=== PATIENT | female | born 1930 | race Caucasian/White ===

== ENCOUNTER 2016-11-16 14:12 | Emergency (ER) | payer MEDICARE, BC ==
[2016-11-16 14:25] VITALS: BP 129/67
[2016-11-16] MEDS ORDERED: Sodium Chloride 0.9% 1,000 ML IV ONE (14:38)
--- NOTE | 2016-11-16 14:38 | EDM.PDOC ---
[id number] 4d HEAD/NECK PAIN, BLURRY VISION Time Seen by Provider: 11/16/16 14:30 Source of Information: Reports: Patient, Family (spouse) - History of Present Illness INITIAL COMMENTS - FREE TEXT/NARRATIVE: 86-year-old female presents the ED with worsening of ataxia and balance and she awoke from sleep this morning. She states she did know she was able to make it to the kitchen after getting up from bed. Strong component of vertigo and nurses appreciate marked ataxia on walking into the room. Seems to be listing a bit to the left side. She required assistance to walk. She denies any vomiting and her stomach is a bit queasy. No recent falls or closed head injuries. Does have pain at the base of her neck and skull appear known to have her start 3 changes throughout her cervical spine. History of vertigo. Her other complaint is that of increased blurred vision. This is likely secondary to nystagmus. She is on multiple eye drops for her glaucoma and vision is impaired at the best of times. Onset: Today (Marked worsening of her balance with ataxia today since waking up from sleep. Pressure at the base of her skull.) Onset Date: 11/16/16 Onset Time: 08:00 Duration: Hour(s):, Constant Location: Reports: Head, Neck, Other (Vertigo symptoms with ataxia.) Quality: Reports: Ache, Pressure Severity: Moderate (At the base of her neck.) Improves with: Reports: Rest (Not moving) Worsens with: Reports: Movement Context: Denies: Activity, Exercise, Lifting, Sick Contact, Trauma, Other Associated Symptoms: Reports: Headaches (Pressure more than headache.), Malaise , Nausea/Vomiting, Weakness (Mild nausea but no vomiting generalized weakness). 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 Right Neck Pain Score (Numeric/FACES): 9 - Related Data Allergies Allergy/AdvReac Type Severity Reaction Status Date / Time amitriptyline Allergy Cannot Verified 11/16/16 14:25 Remember barium sulfate Allergy Cannot Verified 11/16/16 14:25 Remember hydromorphone HCl Allergy Nausea Verified 11/16/16 14:25 [From Dilaudid] Iodinated Contrast Media - Allergy Facial Verified 11/16/16 16:07 Oral and Swelling levothyroxine sodium Allergy Cannot Verified 11/16/16 14:25 Remember lisinopril Allergy Cannot Verified 11/16/16 14:25 Remember morphine Allergy Headache Verified 11/16/16 14:25 moxifloxacin HCl Allergy Cannot Verified 11/16/16 14:25 [From Vigamox] Remember nitrofurantoin Allergy Headache Verified 11/16/16 14:25 olmesartan Allergy Cannot Verified 11/16/16 14:25 Remember olmesartan medoxomil Allergy Cannot Verified 11/16/16 14:25 [From Benicar] Remember promethazine Allergy Cannot Verified 11/16/16 14:25 Remember red dye Allergy Cannot Verified 11/16/16 14:25 Remember thyroid,pork Allergy Cannot Verified 11/16/16 14:25 [From [place] Thyroid] Remember tramadol Allergy Facial Verified 11/16/16 14:25 Swelling valacyclovir Allergy Headache Verified 11/16/16 14:25 mitrocell Allergy Cannot Uncoded 08/17/15 12:29 Remember MSG Allergy Swelling Uncoded 08/17/15 12:29 Home Meds: Home Meds Atropine 1% [Isopto Atropine 1% Ophth Soln] 15 ml EYELF BID 05/13/14 [History] Brinzolamide [Azopt 1% Ophth Susp] 1 drop EYERT TID 05/13/14 [History] Fish Oil/[place]-3 Fatty Acids [Fish Oil] 2 each PO DAILY 05/13/14 [History] Loratadine 10 mg PO DAILY PRN 05/13/14 [History] Travoprost [Travatan Z 0.004% Ophth Soln] 1 drop EYERT BEDTIME 05/13/14 [History ] Levothyroxine [Synthroid] 50 mcg PO DAILY 08/17/15 [History] Acetaminophen [Acetaminophen ER] 650 mg PO Q12H PRN 11/16/16 [History] Ascorbate Calcium [Vitamin C] 1 tab PO DAILY 11/16/16 [History] Calcium Carbonate [Calcium] 600 mg PO DAILY 11/16/16 [History] Chlorthalidone 25 mg PO DAILY 11/16/16 [History] Cholecalciferol (Vitamin D3) [Vitamin D3] 1 tab PO DAILY 11/16/16 [History] Lutein/Minerals/Vit A,C & E [Ocuvite] 1 tab PO DAILY 11/16/16 [History] Lutein/Zeaxanthin [Lutein-Zeaxanthin 25-5 mg Sfgl] 1 tab PO DAILY 11/16/16 [ History] Meloxicam 7.5 mg PO DAILY #14 tablet 11/16/16 [Rx] Metoclopramide HCl [Reglan] 5 mg PO Q8H PRN #10 tablet 11/16/16 [Rx] Ubidecarenone [Co Q-10] 1 tab PO DAILY 11/16/16 [History] Vitamin B Complex 1 tab PO DAILY 11/16/16 [History] Past Medical History HEENT History: Reports: Cataract, Glaucoma, Hard of Hearing, Impaired Vision, Other (See Below) (Hard of hearing and wears hearing is in both ears.) Other HEENT History: Wears glasses, wears dentures. 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: Musculoskeletal History: Reports: Fracture, Other (See Below) Other Musculoskeletal History: Broken vertebrae Neurological History: Reports: TIA Endocrine/Metabolic History: Reports: Hypothyroidism - Infectious Disease History Infectious Disease History: Reports: Shingles - Past Surgical History HEENT Surgical History: Reports: Cataract Surgery, Tonsillectomy GI Surgical History: Reports: Appendectomy, Cholecystectomy, Lysis of Adhesions Female Surgical History: Reports: Hysterectomy, Salpingo-Oophorectomy Social & Family History - Tobacco Use Smoking Status *Q: Never Smoker Second Hand Smoke Exposure: No - Caffeine Use Caffeine Use: Reports: None - Alcohol Use Days Per Week of Alcohol Use: 0 - Recreational Drug Use Recreational Drug Use: No - Living Situation & Occupation Living situation: Reports: with Spouse ED ROS GENERAL - Review of Systems Review Of Systems: See Below Constitutional: Reports: Malaise, Weakness, Decreased Appetite. Denies: Fever, Chills, Fatigue, Weight Loss HEENT: Reports: Glasses, Vision Change (She states her vision seems to be more blurred and difficulty focusing today.) Respiratory: Reports: No Symptoms Cardiovascular: Reports: Blood Pressure Problem, Dyspnea on Exertion, Lightheadedness. Denies: Chest Pain, Claudication, Orthopnea (Chronic hypertension well controlled with current medications), Palpitations Endocrine: Reports: Fatigue GI/Abdominal: Reports: Decreased Appetite. Denies: Abdominal Pain, Anorexia, Black Stool, Bloody Stool, Diarrhea, Difficulty Swallowing : Reports: Frequency, Incontinence (Urge and stress component) Musculoskeletal: Reports: Neck Pain, Back Pain, Joint Pain (Knees and hips.) Skin: Reports: No Symptoms Neurological: Reports: Dizziness, Difficulty Walking, Gait Disturbance (Off balance and ataxic). Denies: Numbness, Seizure, Syncope, Tingling, Weakness Psychiatric: Reports: Anxiety ED EXAM, GENERAL - Physical Exam Exam: See Below Exam Limited By: No Limitations General Appearance: Alert, WD/WN, No Apparent Distress Eye Exam: Bilateral Eye: Normal Inspection, Nystagmus (Mild on right lateral upward gaze) Ears: Normal External Exam, Normal Canal, Other (Her major removed from both ears. She has minimal ear wax or cerumen in nothing impacted against the tympanic membrane bilaterally.) Throat/Mouth: Normal Inspection, Normal Lips, Normal Oropharynx Head: Atraumatic, Normocephalic Neck: Normal Inspection, Supple, Non-Tender, Full Range of Motion. No: Carotid Bruit, Lymphadenopathy (L), Lymphadenopathy (R) Respiratory/Chest: No Respiratory Distress, Lungs Clear, Normal Breath Sounds, No Accessory Muscle Use Cardiovascular: Normal Peripheral Pulses, Regular Rate, Rhythm, No Edema, No Gallop, No Murmur, No Rub Peripheral Pulses: 1+: Posterior Tibial (L), Posterior Tibial (R), Dorsalis Pedis (L), Dorsalis Pedis (R) GI/Abdominal: Normal Bowel Sounds, Soft, Non-Tender, No Organomegaly Back Exam: Decreased Range of Motion. No: CVA Tenderness (L), CVA Tenderness (R ) Extremities: Normal Inspection, Limited Range of Motion (Knees and hips lumbar spine and neck.) Neurological: Alert, Oriented, CN II-XII Intact, Normal Cognition, Normal Reflexes, Abnormal Gait (Ataxic gait.). No: Normal Gait, No Motor/Sensory Deficits, Inattentive, Confused, Disoriented, Slow to Respond, Unresponsive, Memory Loss Remote Events Psychiatric: Normal Affect, Normal Mood Skin Exam: Warm, Dry, Intact, Normal Color, No Rash Course - Vital Signs Last Recorded V/S: Last Vital Signs Temp 35.9 C 11/16/16 14:19 Pulse 59 L 11/16/16 14:19 Resp 18 11/16/16 14:19 BP 129/67 11/16/16 14:19 Pulse Ox 99 11/16/16 14:19 Orthostatic Blood Pressure [ 156/79 Standing] Orthostatic Blood Pressure [ 173/73 Sitting] Orthostatic Blood Pressure [ 171/70 Supine] - Orders/Labs/Meds Labs: Laboratory Tests 11/16/16 11/16/16 11/16/16 Range/Units 14:45 14:45 14:45 WBC 7.40 (3.98-10.04) K/mm3 RBC 3.86 L (3.98-5.22) M/mm3 Hgb 12.2 (11.2-15.7) gm/L Hct 36.2 (34.1-44.9) % MCV 93.8 (79.4-94.8) fl MCH 31.6 (25.6-32.2) pg MCHC 33.7 (32.2-35.5) g/dl RDW Std Deviation 42.0 (36.4-46.3) fL Plt Count 234 (182-369) K/mm3 MPV 9.2 L (9.4-12.3) fl Neutrophils % (Manual) 60 (40-60) % Band Neutrophils % 1 (0-10) % Lymphocytes % (Manual) 34 (20-40) % Atypical Lymphs % 0 % Monocytes % (Manual) 3 (2-10) % Eosinophils % (Manual) 1 (0.7-5.8) % Basophils % (Manual) 1 (0.1-1.2) Platelet Estimate Adequate Plt Morphology Comment Normal Anisocytosis 1+ slight Stomatocytes 1+ slight RBC Morph Comment Not Reportable ESR 31 H (0-20) mm/hr Sodium 134 L (136-145) mEq/L Potassium 3.5 (3.5-5.1) mEq/L Chloride 98 (98-107) mEq/L Carbon Dioxide 27 (21-32) mEq/L Anion Gap 12.5 (5-15) BUN 21 H (7-18) mg/dL Creatinine 1.1 H (0.55-1.02) mg/dL Est Cr Clr Drug Dosing 29.32 mL/min Estimated GFR (MDRD) 47 (>60) mL/min BUN/Creatinine Ratio 19.1 H (14-18) Glucose 99 (83-115) mg/dL Calcium 9.9 (8.5-10.1) mg/dL Magnesium (1.8-2.4) mg/dl Total Bilirubin 0.5 (0.2-1.0) mg/dL AST 23 (15-37) U/L ALT 23 (14-59) U/L Alkaline Phosphatase 67 (46-116) U/L C-Reactive Protein < 0.2 (<1.0) mg/dL Total Protein 7.2 (6.4-8.2) g/dl Albumin 3.6 (3.4-5.0) g/dl Globulin 3.6 gm/dL Albumin/Globulin Ratio 1.0 (1-2) 11/16/16 Range/Units 14:45 WBC (3.98-10.04) K/mm3 RBC (3.98-5.22) M/mm3 Hgb (11.2-15.7) gm/L Hct (34.1-44.9) % MCV (79.4-94.8) fl MCH (25.6-32.2) pg MCHC (32.2-35.5) g/dl RDW Std Deviation (36.4-46.3) fL Plt Count (182-369) K/mm3 MPV (9.4-12.3) fl Neutrophils % (Manual) (40-60) % Band Neutrophils % (0-10) % Lymphocytes % (Manual) (20-40) % Atypical Lymphs % % Monocytes % (Manual) (2-10) % Eosinophils % (Manual) (0.7-5.8) % Basophils % (Manual) (0.1-1.2) Platelet Estimate Plt Morphology Comment Anisocytosis Stomatocytes RBC Morph Comment ESR (0-20) mm/hr Sodium (136-145) mEq/L Potassium (3.5-5.1) mEq/L Chloride (98-107) mEq/L Carbon Dioxide (21-32) mEq/L Anion Gap (5-15) BUN (7-18) mg/dL Creatinine (0.55-1.02) mg/dL Est Cr Clr Drug Dosing mL/min Estimated GFR (MDRD) (>60) mL/min BUN/Creatinine Ratio (14-18) Glucose (83-115) mg/dL Calcium (8.5-10.1) mg/dL Magnesium 1.8 (1.8-2.4) mg/dl Total Bilirubin (0.2-1.0) mg/dL AST (15-37) U/L ALT (14-59) U/L Alkaline Phosphatase (46-116) U/L C-Reactive Protein (<1.0) mg/dL Total Protein (6.4-8.2) g/dl Albumin (3.4-5.0) g/dl Globulin gm/dL Albumin/Globulin Ratio (1-2) Meds: Medications Discontinued Medications Generic Name Dose Route Start Last Admin Trade Name Freq PRN Reason Stop Dose Admin Diphenhydramine HCl 25 mg 11/16/16 16:01 11/16/16 16:10 Benadryl IVPUSH 11/16/16 16:02 25 mg ONETIME ONE Administration Hydrocortisone Sodium Succinate 50 mg 11/16/16 16:01 11/16/16 16:08 Solu-Cortef IVPUSH 11/16/16 16:02 50 mg ONETIME ONE Administration Sodium Chloride 1,000 mls @ 250 mls/hr 11/16/16 14:38 11/16/16 14:49 Normal Saline IV 11/16/16 18:37 250 mls/hr ONETIME ONE Administration Sodium Chloride 100 mls @ 60 mls/hr 11/16/16 16:15 11/16/16 16:40 Normal Saline IV 60 mls/hr ASDIRECTED DANTE Administration Iopamidol 100 ml 11/16/16 16:04 11/16/16 16:39 Isovue-370 (76%) IVPUSH 11/16/16 16:05 100 ml ONETIME ONE Administration Metoclopramide HCl 7.5 mg 11/16/16 14:40 11/16/16 14:50 Reglan IVPUSH 11/16/16 14:41 7.5 mg ONETIME ONE Administration Sodium Chloride 10 ml 11/16/16 16:04 11/16/16 16:39 Saline Flush FLUSH 11/16/16 16:05 10 ml ONETIME ONE Administration - Radiology Interpretation Free Text/Narrative:: 86-year-old female presents to the ED with increased dizziness and vertigo with strong feeling of feeling off balance since the right awakening this morning. Has a lot of pressure at the base of her neck. She is listing to the left. She tells her vision is much more blurry and difficult to focus today as well. This is difficult to assess as she has severe glaucoma and limited visual acuity best of times. Examination does reveal mild sustained nystagmus on looking to the right and upward days. She is not dizzy when she is lying still. She passed finger to nose assessment. She was noted to be quite ataxic when walking into the room and appreciates that she seems to list to the left side. I can not identify any right-sided weakness. She has some queasiness or nausea but she has not vomited. She was found to be orthostatic with BP 129/67 lying. Sitting is 116/58 and standing is 97/62. Plan IV normal saline at 250 mils per hour. Routine labs to be collected. I will CT her head and cervical spine. I suspect she has vertebrobasilar insufficiency. Question whether or not CTA can be carried out depends on her renal function. - Re-Assessments/Exams Free Text/Narrative Re-Assessment/Exam: 11/16/16 15:39 CT of the head has been completed. It reveals age-appropriate degenerative changes with enlargement of the cortical sulci compatible with cerebral atrophy. There is small chronic cerebellar infarctions bilaterally. There is minimal periventricular subcortical areas of low attenuation consistent with chronic small vessel ischemic changes. No evidence of hemorrhage or mass effect. Cervical spine reveals advanced arthritic changes particularly at the atlantoaxial joint. This is likely causing the pressure at the base of her head. The remainder of the vertebra show advanced degenerative changes at C4 to C7 with the discs nearly completely gone. There is diffuse facet joint hypertrophy worse on the left right as compared to the left. Disc/ osteophyte complexes indent the ventral thecal sac throughout the cervical spine. Lab work shows a normal white count of 7.40 with normal differential. Hemoglobin is 12.2 with hematocrit of 36.2. Platelets normal 2 and 34,000. She shows a sodium of 134 and a potassium of 3.5. Creatinine is 1.1 with an EGFR 47. ABG normal 1.8. She could tolerate contrast for a CTA from a renal point of view. There is some mention of possible allergic problem with contrast in the past.. 11/16/16 16:02 We did get her up walking and overall she did pretty well. Better than when she came in. I think the Reglan is helping. She can pivot and turned fairly well without losing her balance. Going to go ahead and do the CT angiogram of the neck and able visualize the base of the brain as well as the [place] with this test. There is some mention of possible allergy to contrast media. I will have her premedicate her with Benadryl 25 mg IV and hydrocortisone 50 mg IV. 11/16/16 17:[address] angiogram of the neck. She tolerated this without any ill effects from the contrast media. The CT angiogram reveals complete occlusion of the left vertebral artery about midway along its distribution. There is a small area of stenosis of the right vertebral artery just inferior to the [place]. Carotid arteries for the most part are normal. There is a mild amount of atherosclerosis on the right carotid artery near the carotid siphon. This goes along with her clinical picture with ataxia secondary to vertebrobasilar insufficiency. Going to place her on meloxicam 7.5 mg once daily as a trial medication for 2 weeks to see if that will alleviate some of her arthritic pain which is most bothersome in her neck and knees. Will send Reglan 5 mg tablets home x10 she can take one every 8 hours if needed for vertigo symptoms. Her blood pressures improved after 750 mls of IV fluid. She is no longer orthostatic. 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 Associated changes in visual acuity that go along with vertigo symptoms. You're treated with Reglan 7.5 mg IV in the ED to relieve some of the vertigo symptoms and it did seem to help improve your balance to some degree. CT of the brain reveals evidence of old strokes in the cerebellum which is the part of the back of the brain that controls balance. Question is whether or not a new event has occurred on top of the old event. extensive osteoarthritic changes throughout the neck bones identified causing a good deal of pain and pressure at the base of her skull. Blood work essentially was all normal. An angiogram was done to look at the arteries that supply the back of the brain with blood to see how bad they are blocked up from hardening of the arteries. The angiogram identified that the blood vessels delivering blood to to the brain reveals only mild evidence of hardening of the arteries. The Rt vertebral artery that delivers blood to the back of the brain ( cerebellum) and may be the cause of some of your off balance feeling. Suggest a trial of medication called meloxicam 7.5 mg once daily to see if it can relieve it portion of your pain and inflammation from arthritis in her neck back and knees. I provided 14 tablets so that this is a trial period to see if he thought it helped enough to stay on the medication halfway. Followup with her personal doctor in approximately 2 weeks' time for reevaluation in this regard. I also sent home with prescription for a few tablets of Reglan 5 mg strength that he can take one every 8 hours if needed for feeling off balance or vertigo like you experience this morning.
[2016-11-16] MEDS ORDERED: Metoclopramide 10 MG/2 ML SDV IVPUSH ONE (14:40)
[2016-11-16] MEDS ORDERED: diphenhydrAMINE 50 MG/ML SDV IVPUSH ONE (16:01)
[2016-11-16] MEDS ORDERED: Hydrocortisone Sodium Succinate 100 MG/2 ML SDV IVPUSH ONE (16:01)
[2016-11-16] MEDS ORDERED: Iopamidol 755 Mg/ML 100 ML Bottle IVPUSH ONE (16:04)
[2016-11-16] MEDS ORDERED: Sodium Chloride 0.9% 10 ML Syringe FLUSH ONE (16:04)
[2016-11-16] MEDS ORDERED: Sodium Chloride 0.9% 100 ML IV SCH (16:15)
--- NOTE | 2016-11-17 10:08 | CT ---
CT cervical spine Technique: Multiple axial sections were obtained from above C1 inferiorly to the upper T2 vertebral body. Reconstructed sagittal and coronal images were reviewed. Findings: Severe disc space narrowing noted at C4-C5, C5-C6 and C6-C7. Mild disc space narrowing noted at C3-C4 through C6-C7. Mild scattered degenerative apophyseal change is noted throughout the cervical spine which is worse on the right side. Degenerative spurring noted within the uncovertebral joints from C3-C4 through C7-T1. Bony structures are osteopenic. Vertebral bodies and posterior arches are intact with no fracture being seen. Neural foramina are fairly well patent throughout the cervical spine. No bony central canal stenosis is seen. Impression: 1. Degenerative change as noted above. No acute fracture or acute subluxation is seen. Diagnostic code #2 I agree with preliminary report issued by [facility] (report finalized on 11/16/16, 4:59 PM Central Time)
--- NOTE | 2016-11-17 10:11 | CT ---
CT angiogram of neck Left vertebral artery is dominant and patent throughout. Left vertebral artery supplies the basilar artery. 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 Common carotid arteries and internal carotid arteries show no significant stenosis. Proximal external carotid arteries are patent. Impression: 1. 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 Flow into the basilar artery is primarily by the left vertebral artery. 2. Other portions of the CT angiogram of the neck are unremarkable. Diagnostic code #3 I agree with preliminary report issued by [facility] (report finalized on 11/16/16, 6:24 PM Central Time) CT angiogram of brain Technique: Multiple axial sections through the brain were obtained. Intravenous contrast was utilized. Study has been performed as a CT angiogram protocol. Multiple MIP images were obtained. Findings: Carotid siphon appears unremarkable on both sides. There is some vascular calcification seen within the carotid siphon. Calcification noted within the distal right middle cerebral artery. There are no focal areas of stenosis within the middle cerebral arteries. Anterior cerebral arteries appear to be patent. Posterior cerebral arteries also show proximal patency. Impression: 1. Mild atherosclerotic calcification. 2. No focal stenosis identified on CT study of the brain centered to the [place] of [place]. Diagnostic code #2 I agree with preliminary report issued by [facility] (report finalized on 11/16/16, 6:24 PM Central Time)
--- NOTE | 2016-11-17 11:57 | CT ---
Head CT Technique: Multiple axial sections through the brain were obtained. Intravenous contrast was not utilized. Comparison: Previous head CT exam of 09/27/13 is available as well as previous MRI brain of 02/05/14 is available. Findings: Ventricles along the basal cisterns and sulci over the convexities are within normal limits for the patient's age. Minimal diminished density noted within portions of the periventricular white matter compatible with small vessel ischemic demyelination change. Small dystrophic calcification is identified within the sylvian fissure which is seen on prior study and is felt to be incidental. No other abnormal parenchymal densities are seen. No evidence of intracranial hemorrhage. No midline shift or mass effect is seen. Bone window settings were reviewed which show no discrete calvarial abnormality. Visualized sinuses are clear. Impression: 1. Senescent change as noted above. Nothing acute is appreciated on noncontrast head CT Diagnostic code #2 I agree with preliminary report issued by [facility] (report finalized on 11/16/16, 4:32 PM Central Time)
== END 2016-11-16 17:58 | disposition home or self-care (01) ==
LOC: JD.ED 14:12
DX: I69.398 Other sequelae of cerebral infarction (principal); M47.12 Other spondylosis with myelopathy, cervical region; I65.03 Occlusion and stenosis of bilateral vertebral arteries; I65.21 Occlusion and stenosis of right carotid artery; H40.89 Other specified glaucoma; I69.393 Ataxia following cerebral infarction; R53.1 Weakness; R11.0 Nausea; H91.93 Unspecified hearing loss, bilateral; K21.9 Gastro-esophageal reflux disease without esophagitis; I10 Essential (primary) hypertension; E03.9 Hypothyroidism, unspecified
CPT/HCPCS: 36415; 70450; 70498; 72125; 80053; 83735; 85025; 85652; 86140; 96361; 96374; 96375; 99284; J1200; J1720; J2765; J7030; J7040; J7050; Q9967

== ENCOUNTER 2017-08-09 12:38 | Emergency (ER) | payer MEDICARE, BC ==
[2017-08-09 13:10] VITALS: BP 173/77
--- NOTE | 2017-08-09 13:22 | EDM.PDOC ---
ED HPI GENERAL MEDICAL PROBLEM - General Chief Complaint: Eye Problems Stated Complaint: VISION ISSUES Time Seen by Provider: 08/09/17 13:21 Source of Information: Reports: Patient History Limitations: Reports: No Limitations - History of Present Illness INITIAL COMMENTS - FREE TEXT/NARRATIVE: 87-year-old female presents to the ED complaining of superior neck pain that is interfering with her vision. By history patient has glaucoma and severe macular degeneration and thus has occult and documented eye disease. She has chronic pain in her cervical spine due to severe degenerative arthritis and likely vertebrobasilar insufficiency by history I when she rotates or extends her neck she gets blurred vision and I suspect a component of vertigo. Is never fallen however. Her chief complaint is actually pain at the base of her neck. She reports that this causes her to black out her vision at times. However her vision remains extremely poor the best of times. She is convinced that it's due to a fall 8 years ago with blunt head trauma the damaged hurts her neck and her head. Onset: Other (Chronic problems.) Duration: Chronic (Has a positive for many months and probably closer to a year. ) Location: Reports: Neck (Chronic pain base of neck and when she moves laterally or fully extends it she gets vertebrobasilar insufficiency with feeling of being off balance as well as decreased vision. This may be secondary to compromise of her vertebral arteries with poor blood supply to the posterior fossa and potentially to the exceptional cortex of her brain if there is an anterior arterial occlusion.) Quality: Reports: Ache, Throbbing (Constant ache throbbing in her neck.) Severity: Moderate (To severe at times. Uses Tylenol arthritis 3 times daily) Improves with: Reports: None, Other (Heat packs will sometimes help.) Worsens with: Reports: None Context: Denies: Activity, Exercise, Lifting, Sick Contact, Trauma, Other Associated Symptoms: Reports: Headaches, Malaise. 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) (Usually uses Tylenol arthritis 2 tablets 3 times daily.) Posterior Head Pain Score (Numeric/FACES): 10 - Related Data Allergies Allergy/AdvReac Type Severity Reaction Status Date / Time amitriptyline Allergy Cannot Verified 11/16/16 14:25 Remember barium sulfate Allergy Cannot Verified 11/16/16 14:25 Remember hydromorphone HCl Allergy Nausea Verified 11/16/16 14:25 [From Dilaudid] Iodinated Contrast- Oral and Allergy Facial Verified 11/16/16 16:07 IV Dye Swelling [Iodinated Contrast Media - Oral and] levothyroxine sodium Allergy Cannot Verified 11/16/16 14:25 Remember lisinopril Allergy Cannot Verified 11/16/16 14:25 Remember morphine Allergy Headache Verified 11/16/16 14:25 moxifloxacin HCl Allergy Cannot Verified 11/16/16 14:25 [From Vigamox] Remember nitrofurantoin Allergy Headache Verified 11/16/16 14:25 olmesartan Allergy Cannot Verified 11/16/16 14:25 Remember olmesartan medoxomil Allergy Cannot Verified 11/16/16 14:25 [From Benicar] Remember promethazine Allergy Cannot Verified 11/16/16 14:25 Remember red dye Allergy Cannot Verified 11/16/16 14:25 Remember thyroid,pork Allergy Cannot Verified 11/16/16 14:25 [From [place] Thyroid] Remember tramadol Allergy Facial Verified 11/16/16 14:25 Swelling valacyclovir Allergy Headache Verified 11/16/16 14:25 mitrocell Allergy Cannot Uncoded 08/17/15 12:29 Remember MSG Allergy Swelling Uncoded 08/17/15 12:29 Home Meds: Home Meds Atropine 1% [Isopto Atropine 1% Ophth Soln] 15 ml EYELF BID 05/13/14 [History] Brinzolamide [Azopt 1% Ophth Susp] 1 drop EYERT TID 05/13/14 [History] Fish Oil/[place]-3 Fatty Acids [Fish Oil] 2 each PO DAILY 05/13/14 [History] Loratadine 10 mg PO DAILY PRN 05/13/14 [History] Travoprost [Travatan Z 0.004% Ophth Soln] 1 drop EYERT BEDTIME 05/13/14 [History ] Levothyroxine [Synthroid] 50 mcg PO DAILY 08/17/15 [History] Acetaminophen [Acetaminophen ER] 650 mg PO Q12H PRN 11/16/16 [History] Ascorbate Calcium [Vitamin C] 1 tab PO DAILY 11/16/16 [History] Calcium Carbonate [Calcium] 600 mg PO DAILY 11/16/16 [History] Chlorthalidone 25 mg PO DAILY 11/16/16 [History] Cholecalciferol (Vitamin D3) [Vitamin D3] 1 tab PO DAILY 11/16/16 [History] Lutein/Minerals/Vit A,C & E [Ocuvite] 1 tab PO DAILY 11/16/16 [History] Lutein/Zeaxanthin [Lutein-Zeaxanthin 25-5 mg Sfgl] 1 tab PO DAILY 11/16/16 [ History] Meloxicam 7.5 mg PO DAILY #14 tablet 11/16/16 [Rx] Metoclopramide HCl [Reglan] 5 mg PO Q8H PRN #10 tablet 11/16/16 [Rx] Ubidecarenone [Co Q-10] 1 tab PO DAILY 11/16/16 [History] Vitamin B Complex 1 tab PO DAILY 11/16/16 [History] Past Medical History HEENT History: Reports: Cataract, Glaucoma, Hard of Hearing, Impaired Vision, Other (See Below) Other HEENT History: Wears glasses, wears dentures. 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: Musculoskeletal History: Reports: Fracture, Other (See Below) Other Musculoskeletal History: Broken vertebrae Neurological History: Reports: TIA Endocrine/Metabolic History: Reports: Hypothyroidism - Infectious Disease History Infectious Disease History: Reports: Shingles - Past Surgical History HEENT Surgical History: Reports: Cataract Surgery, Tonsillectomy GI Surgical History: Reports: Appendectomy, Cholecystectomy, Lysis of Adhesions Female Surgical History: Reports: Hysterectomy, Salpingo-Oophorectomy Social & Family History - Tobacco Use Smoking Status *Q: Never Smoker Second Hand Smoke Exposure: No - Caffeine Use Caffeine Use: Reports: Tea - Alcohol Use Days Per Week of Alcohol Use: 0 - Recreational Drug Use Recreational Drug Use: No - Living Situation & Occupation Living situation: Reports: with Spouse ED ROS GENERAL - Review of Systems Review Of Systems: See Below Constitutional: Reports: Malaise, Weakness, Fatigue, Decreased Appetite, Weight Loss (Poor sleep habits.). Denies: Fever, Chills HEENT: Reports: Glasses ( a time she week. 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 By history she has glaucoma as well as macular degeneration.), Vision Change ( Vision is getting worse. She can barely see) Respiratory: Reports: Shortness of Breath. Denies: Wheezing, Pleuritic Chest Pain (On exertion), Cough, Sputum Cardiovascular: Reports: Blood Pressure Problem, Dyspnea on Exertion. Denies: Chest Pain, Claudication, Edema, Orthopnea (Chronic hypertension) Endocrine: Reports: Fatigue GI/Abdominal: Reports: Constipation, Decreased Appetite : Reports: Frequency, Incontinence (Overt and stress components.) Musculoskeletal: Reports: Neck Pain (Severe chronic neck pain particular at the base of her skull. Known degenerative arthritis and degenerative disc disease in her cervical spine. Currently no radiculopathy into either upper extremity. Perhaps across the trapezius into the shoulders but not down the arm.), Back Pain. Denies: Hand Pain, Leg Pain, Foot Pain, Joint Pain, Joint Swelling Skin: Reports: No Symptoms Neurological: Reports: Dizziness, Difficulty Walking, Weakness, Gait Disturbance (Due to balance problems.). Denies: Headache, Numbness, Paresthesia , Pre-Existing Deficit (Due to balance problems), Syncope, Tingling, Tremors, Trouble Speaking, Change in Speech Psychiatric: Reports: Anxiety Hematologic/Lymphatic: Reports: No Symptoms Immunologic: Reports: No Symptoms ED EXAM GENERAL W FULL EYE - Physical Exam Exam: See Below Exam Limited By: No Limitations General Appearance: Alert, WD/WN, Anxious Eye Exam: Right Eye: Vision Changes (She has severely decreased peripheral visual shen with loss of at least 50% of her visual shen peripherally on gross visual field exam.), Bilateral Eye: Normal Inspection (Has had previous cataract extractions and bilateral intraocular lens implants.), PERRL Visual Acuity (R) 20/: 200 Visual Acuity (L) 20/: 200 With Correction: Yes Eyelids: Bilateral: Normal Appearance Conjunctiva & Sclera: Bilateral: Normal Appearance Cornea Exam: Bilateral: Normal Appearance Extraocular Movements: Bilateral: Intact Pupils: Normal Accommodation Pupillary Size: Bilateral: 6 mm Pupillary Reaction: Bilateral: Sluggish Throat/Mouth: Normal Inspection, Normal Lips, Normal Teeth, Normal Oropharynx Head: Atraumatic, Normocephalic Neck: Normal Inspection, Supple, Non-Tender, Full Range of Motion. No: Lymphadenopathy (L), Lymphadenopathy (R) Respiratory/Chest: No Respiratory Distress, Lungs Clear, Normal Breath Sounds, Chest Non-Tender (Mild tachypnea at rest mostly due to anxiety. Sats are 96% on room air), Respiratory Distress Cardiovascular: Normal Peripheral Pulses, Regular Rate, Rhythm, No Edema, No Gallop, Systolic Murmur (Grade 2 systolic ejection murmur best heard at the left lateral sternal border) GI/Abdominal: Normal Bowel Sounds, Soft, Non-Tender, No Organomegaly Back Exam: Decreased Range of Motion (Mild kyphosis thoracic spine.), Other Extremities: Normal Inspection, Normal Range of Motion, Non-Tender, Other ( Trace pedal edema at the ankles.) Neurological: Alert, Oriented, CN II-XII Intact, Normal Cognition. No: Normal Gait Psychiatric: Anxious Skin Exam: Warm, Dry, Intact, Normal Color Course - Vital Signs Last Recorded V/S: Last Vital Signs Temp 36.6 C 08/09/17 13:06 Pulse 67 08/09/17 13:06 Resp 20 08/09/17 13:06 BP 173/77 H 08/09/17 13:06 Pulse Ox 96 08/09/17 13:06 - Orders/Labs/Meds Labs: Laboratory Tests 08/09/17 08/09/17 Range/Units 15:35 15:35 WBC 6.97 (3.98-10.04) K/mm3 RBC 3.92 L (3.98-5.22) M/mm3 Hgb 12.0 (11.2-15.7) gm/L Hct 36.6 (34.1-44.9) % MCV 93.4 (79.4-94.8) fl MCH 30.6 (25.6-32.2) pg MCHC 32.8 (32.2-35.5) g/dl RDW Std Deviation 45.4 (36.4-46.3) fL Plt Count 223 (182-369) K/mm3 MPV 9.3 L (9.4-12.3) fl Neutrophils % (Manual) 54 (40-60) % Band Neutrophils % 1 (0-10) % Lymphocytes % (Manual) 28 (20-40) % Atypical Lymphs % 0 % Monocytes % (Manual) 13 H (2-10) % Eosinophils % (Manual) 3 (0.7-5.8) % Basophils % (Manual) 1 (0.1-1.2) Platelet Estimate Adequate Anisocytosis 1+ slight Macrocytosis 1+ slight Ovalocytes 1+ slight RBC Morph Comment Not Reportable Sodium 136 (136-145) mEq/L Potassium 3.4 L (3.5-5.1) mEq/L Chloride 99 (98-107) mEq/L Carbon Dioxide 27 (21-32) mEq/L Anion Gap 13.4 (5-15) BUN 18 (7-18) mg/dL Creatinine 1.1 H (0.55-1.02) mg/dL Est Cr Clr Drug Dosing 26.37 mL/min Estimated GFR (MDRD) 47 (>60) mL/min BUN/Creatinine Ratio 16.4 (14-18) Glucose 93 (83-115) mg/dL Calcium 9.8 (8.5-10.1) mg/dL Total Bilirubin 0.6 (0.2-1.0) mg/dL AST 26 (15-37) U/L ALT 24 (14-59) U/L Alkaline Phosphatase 63 (46-116) U/L C-Reactive Protein < 0.2 (<1.0) mg/dL Total Protein 7.4 (6.4-8.2) g/dl Albumin 3.7 (3.4-5.0) g/dl Globulin 3.7 gm/dL Albumin/Globulin Ratio 1.0 (1-2) TSH 3rd Generation 12.290 H (0.358-3.74) uIU/mL - Radiology Interpretation Free Text/Narrative:: 87-year-old female presents to the ED with complaints of gradually worsening visual acuity over the last several months. She complains of severe pain at the base of her neck that seems to precipitate her visual field deficits. Particularly when she looks laterally or hyperextends her neck. She may well be getting vertebrobasilar insufficiency by history has it causes a dysfunctional gait. She states this seems to make her vision worse than it already is. Note the patient is legally blind she can barely see a hand in front of her. She seems to have severe glaucoma with peripheral visual field losses. Apparently there is a component of macular degeneration as well. By history she has degenerative arthritis in her cervical spine and degenerative disc disease. She has chronic severe pain in her neck but she is allergic to most medications or does not take them for very long due to side effect profile. A course of meloxicam in the past was discontinued after 14 days and she can't remember whether it helped or not. She's taking Tylenol arthritis 3 times daily for neck pain. She is noncompliant with her medications good portion side particular her thyroid supplementation and Synthroid. She's been taking about half the prescribed dose. This could be contributing to the way she feels as well. Plan routine labs will be obtained in CT of her head. CT of her head done because of worsening visual field deficits worried about pituitary fossa adenoma etc. Possible intracranial hypertension. - Re-Assessments/Exams Free Text/Narrative Re-Assessment/Exam: 08/09/2017: 15:10: CT of her head reveals mild small vessel ischemic changes in both basal ganglia. There is no mass effect and no evidence of pituitary fossa abnormalities or evidence of intracranial hypertension. No intracranial infarcts are identified in the occipital cortices. 08/09/17 16:40 White count is 6.97 with 54% neutrophils 1% band cells. Hemoglobin is 12.0 with hematocrit of 36.6. Platelet count is turned 23,000. Areas and elevation of her monocytes at 13%. She has slight annular cytosis slight macrocytosis and slight ovalocytes suggesting splenomegaly. Sodium is 136 with a potassium 3.4. Mildly low. Chloride is 99 with a bicarbonate 27. Anion gap is 13.4 BUN is 18. Creatinine is 1.1. EGFR is 47. Glucose is normal at 93. Calcium 9.8. Liver function normal. C-reactive protein less than 0.2 TSH is markedly elevated at 12.290. This means that she is not taking adequate supplementation. This is due to noncompliance as she takes only about half of what has been prescribed. 08/09/17 17:30: Explained to her son today that her current thyroid thyroid supplementation is way below normal. She is only taking half of the prescribed dose concerned again about side effect profile. Current TSH is 12.2 indicating significant hypothyroidism which is likely contributing to a lot of her symptom complexes. Advise follow-up with her planning feeder which I believe is an appointment is coming up within the next 10 days. I could not come up with a plan for better pain management of her cervical spine pain at this time due to side effect profile to numerous medications. 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 This causes a lot of pain in the neck that radiates up into the skull. It is associated with her vertebral artery insufficiency which means when you came to her neck either by looking upwards or to the side all the way it takes up blood supply to the back of your brain which may affect her vision. May also affect her balance and you may feel offkilter when this occurs. Unfortunately there isn't much we can do for this as the blood vessels clogged up over time and of course arthritis is gradually degenerative in nature. Only revealed hypothyroidism meaning that current dosage of thyroid replacement hormone is inadequate. Her current TSH is 12 .29 and normal is 1.5-2. Therefore you are on inadequate amount of thyroid replacement hormone which can affect her vision and your bones your heart and your brain function. Every tissue in your body requires thyroid hormone and unfortunately with your thyroid gland previously removed using require supplementation. It is highly unlikely that the thyroid medicine itself has any significant side effects. The only problem is it must be taken by itself without any other medications or no other medications for an hour after you take it on an empty stomach. Otherwise it does not get absorbed properly. In regards to your neck pain I would suggest continue Tylenol arthritis medication 3 times daily with 1 dose always at bedtime that may help you sleep a bit better. With regards to your allergies I do not find any other medication that would be suitable at this time to ride relief of pain in her neck. Please follow-up with her personal care provider in this regard.
--- NOTE | 2017-08-09 13:54 | CT ---
Head CT Technique: Multiple axial sections through the brain were obtained. Intravenous contrast was not utilized. Comparison: Prior head CT exam of 11/16/16. Findings: Ventricles along with basal cisterns and sulci over convexities are within normal limits for the patient's age. Very minimal diminished density is noted within the periventricular white matter compatible with slight small vessel ischemic demyelination change. Incidental calcification is noted within the sylvian fissure on the right side which is stable. No other abnormal parenchymal densities are seen. No evidence of intracranial hemorrhage. No midline shift or mass effect is seen. Bone window settings were reviewed which shows the visualized sinuses to appear clear. No acute calvarial abnormality is seen. Small opacity noted within the anterior left globe. Please correlate as to etiology. Impression: 1. Small opacity within the anterior left globe. Please correlate as to etiology. Differential includes foreign body versus calcification. 2. Slight senescent change as noted above. No acute intracranial abnormality is identified. Diagnostic code #3
== END 2017-08-09 16:56 | disposition home or self-care (01) ==
LOC: JD.ED 12:38
DX: M47.12 Other spondylosis with myelopathy, cervical region (principal); E03.9 Hypothyroidism, unspecified; H35.30 Unspecified macular degeneration; H40.10X0 Unspecified open-angle glaucoma, stage unspecified; I10 Essential (primary) hypertension; Z88.8 Allergy status to other drugs, medicaments and biological substances; Z88.5 Allergy status to narcotic agent; Z91.041 Radiographic dye allergy status; Z79.899 Other long term (current) drug therapy
CPT/HCPCS: 36415; 70450; 70450-26; 80053; 84443; 85025; 86140; 99284; 99284-25